=== PATIENT | female | born 1985 | race Two or more races ===

== ENCOUNTER 2024-04-03 14:02 | Outpatient (AMB) | payer OTHER, SELFPAY ==
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
[2024-04-03 14:16] VITALS: BP 102/68; PULSE 90; RESP 12; TEMP 36.8; O2SAT 100; BMI 24.3
== END 2024-04-03 15:38 | disposition home or self-care (01) ==
PROVIDERS: PCP Physician Assistant Medical; Visit Provider Physician Assistant Medical
DX: M54.2 Cervicalgia (principal); F07.81 Postconcussional syndrome; V89.2XXA Person injured in unspecified motor-vehicle accident, traffic, initial encounter; Z04.2 Encounter for examination and observation following work accident
CPT/HCPCS: 99204; G2211

== ENCOUNTER 2024-04-24 14:30 | Outpatient (AMB) | payer OTHER, SELFPAY ==
--- NOTE | 2024-04-15 08:35 | A.OFFPC_ITS ---
Intake Visit Reasons: CPE plus labs Allergies No Known Allergies Allergy (Verified 04/03/24 14:12) Tobacco use date assessed: 04/03/24 Dental Screening Dental Screen Date: 04/03/24 [facility] Family History (Updated 04/03/24 @ 14:41 by SUKUMAR Hernandez) Mother Hypertension Paternal Grandfather FH: CABG (coronary artery bypass surgery) Social History Housing: House Patient Tobacco Use Status: Never used Tobacco e-Cigarette/Vaping Use: Never Used Second Hand Smoke Exposure: No service: No Current occupational status: employed Current occupation: RN Current occupational exposures/hazards: No Cognitive needs: No Hearing needs: No Vision needs: Yes (contacts) Questionnaire Thrive Questionnaire Date Thrive assessed: 04/03/24 MAURI-7 AMB Questionnaire MAURI-7 Date MAURI - 7 assessed: 04/03/24 Source: Developed by Drs. Jacobo Otoole, Lorena Yanes, Esvin Steinberg and colleagues, with an educational sharon from [employer]. Physical exam (Primary Care) Tobacco/Smoking Status: Tobacco use Status Tobacco use date assessed 04/03/24 04/03/24 14:21 Patient Tobacco Use Status Never used Tobacco 04/03/24 14:21 e-Cigarette/Vaping Use Never Used 04/03/24 14:21 Thrive Assessment: Date of Thrive Assessment Date Thrive assessed 04/03/24 04/03/24 15:42 Coding
[2024-04-24 14:35] VITALS: BP 100/60; PULSE 84; O2SAT 99; BMI 24.5
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
== END 2024-04-24 15:34 | disposition home or self-care (01) ==
PROVIDERS: PCP Physician Assistant Medical; Visit Provider Physician Assistant Medical
DX: Z00.00 Encounter for general adult medical examination without abnormal findings (principal); R53.83 Other fatigue
CPT/HCPCS: 99395

== ENCOUNTER 2024-04-25 12:50 | Outpatient (REF) | payer OTHER, SELFPAY ==
[2024-04-25 14:30] LABS: Hematocrit 38.4 % (37.0-47.0); Mean Corpuscular HGB Conc 33.9 g/dl (31.0-35.0); Mean Corpuscular Volume 97.5 fL (80.0-98.0); Mean Platelet Volume 9.6 fL (9.4-12.3); Platelet Count 226 X10*3/uL (160-400); Red Blood Count 3.94 X10*6/uL (4.20-5.50); Red Cell Distribution Width 12.5 % (11.0-16.0)
[2024-04-25 15:07] LABS: Alanine Aminotransferase 15 U/L (0-31); Albumin Level 4.4 g/dL (3.5-5.0); Alkaline Phosphatase 42 U/L (39-117); Anion Gap 10 (12-20); Aspartate Amino Transferase 31 U/L (5-31); Bilirubin Total 1.3 mg/dL (0.0-1.0); Blood Urea Nitrogen 11 mg/dL (9-16); Calcium 9.5 mg/dL (8.4-10.2); Carbon Dioxide 28 mmol/L (22-29); Chloride 105 mmol/L (96-108); Cholesterol 178 mg/dL (<200); Estimated Glomerular Filt Rate > 60; Glucose Random 77 mg/dL (60-115); HDL Cholesterol 61 mg/dL (>40); LDL Cholesterol Calculated 108 mg/dL (<100); Potassium 3.6 mmol/L (3.3-5.1); Sodium 139 mmol/L (135-145); Total Protein 7.5 g/dL (6.5-8.0); Triglycerides 45 mg/dL (<150)
[2024-04-25 15:08] LABS: TSH reflex Free T4 0.43 uIU/mL (0.32-4.0)
== END 2024-04-25 12:51 | disposition home or self-care (01) ==
LOC: HO.WFDLDS 12:50
PROVIDERS: Visit Provider Physician Assistant Medical
DX: Z00.00 Encounter for general adult medical examination without abnormal findings (principal); Z13.6 Encounter for screening for cardiovascular disorders; E66.9 Obesity, unspecified; R53.83 Other fatigue; R42 Dizziness and giddiness
CPT/HCPCS: 36415; 80053; 80061; 84443; 85027

== ENCOUNTER 2024-07-08 13:41 | Outpatient (REF) | payer OTHER, SELFPAY ==
[2024-07-09 08:36] LABS: HBS Num1 > 1000.00 mIU/mL (0-7.99); ~Hepatitis B Surface Antibody REACTIVE (Nonreactive)
[2024-07-09 20:03] LABS: Varicella IgG Antibody 1.63 S/CO
[2024-07-11 16:12] LABS: TS Negative Control Passed; TS Panel A 0; TS Panel B 0; TS Positive Control Passed; TSpotTB Negative (Negative)
== END 2024-07-08 13:42 | disposition home or self-care (01) ==
LOC: HO.LAB 13:41
PROVIDERS: Visit Provider Physician Assistant Medical
DX: Z01.84 Encounter for antibody response examination (principal); Z11.1 Encounter for screening for respiratory tuberculosis
CPT/HCPCS: 36415; 86481; 86706; 86735; 86762; 86765; 86787

== ENCOUNTER 2024-09-09 10:49 | Outpatient (AMB) | payer OTHER, SELFPAY ==
--- NOTE | 2024-09-09 11:50 | MHC.OFFWIV ---
Intake Vital Signs 09/09/24 11:52 Weight 150 lb BP 118/76 Blood Pressure Location Rt brachial Position Sitting Pulse 82 Pulse Source Pulse Oximeter Temp 98.1 F Temp Source Oral Pulse Oximetry (%) 97 Oxygen Delivery Method Room Air Intake Visit Reasons: EP-continue cough, sob, chest pain due to cough Intake Note: Patient here for cough, SOB, chest pressure that has been present for about 2 weeks. Patient Tobacco Use Status: Never used Tobacco Allergies No Known Allergies Allergy (Verified 09/09/24 11:51) Do you need a note to return to daycare/school/sports/work: Yes HPI HPI Comments History of Present Illness Details The patient is a 39-year-old female presenting with a persistent cough. The patient reports being ill last week with symptoms of body aches, stomach discomfort, chills, and fever, lasting three to four days. She self-tested for COVID-19, given the presence of aches and systemic symptoms, but her test was negative. During the course of the illness, she experienced severe malaise and remained at home until feeling better. Post-recovery, however, she developed a persistent cough that has been ongoing. The cough is severe enough to cause muscle pain and back discomfort due to the frequency and intensity. 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 Consequently, she worries about the potential risk of transmitting an infectious condition. No abnormalities in respiratory history such as asthma or smoking have been documented. She denies fever resurgence but notes a lingering cough and described a nighttime chest tightness or pressure upon sleeping. [facility] Medical History (Updated 09/09/24 @ 12:21 by Bernie Buckley PA-C) No pertinent past medical history Surgical History (Updated 04/24/24 @ 15:11 by SUKUMAR Hernandez) History of wisdom tooth extraction No pertinent past surgical history Family History (Updated 04/24/24 @ 15:10 by SUKUMAR Hernandez) Mother Hypertension Paternal Grandfather FH: CABG (coronary artery bypass surgery) Prostate cancer Sister Rheumatoid arthritis Social History (Updated 04/24/24 @ 14:48 by Gloria Andrade CMA) Household Members: Family Both parents involved: No Caregiver staying overnight: No Housing: House Are you a primary plant health care technician to a significant other at home: No Do you presently have visiting nurse or other home services: No 75 years or older and lives alone: No Alcohol intake: current Alcohol type: wine and other Patient Tobacco Use Status: Never used Tobacco e-Cigarette/Vaping Use: Never Used Second Hand Smoke Exposure: No Agree to transfusion: Yes service: No Current occupational status: employed Current occupation: RN Current occupational exposures/hazards: No Cognitive needs: No Hearing needs: No Vision needs: Yes (contacts) Review of Systems Const All systems reviewed & are unremarkable except as noted in HPI and below Physical Exam Vital Signs: Last Vital Signs Temp 98.1 F 09/09/24 11:52 Pulse 82 09/09/24 11:52 BP 118/76 09/09/24 11:52 Pulse Ox 97 09/09/24 11:52 Oxygen Delivery Method Room Air 09/09/24 11:52 Const General: cooperative, healthy appearing, comfortable and no acute distress Orientation/consciousness: patient oriented x3 Limitations: no limitations HEENT Head: Yes normal to inspection Ears: hearing grossly normal bilaterally, external ears normal and TM's normal bilaterally General nose exam: Normal external nose present, Normal nares present and No nasal discharge present Face and sinus: Yes normal facial exam and Yes sinuses nontender Mouth: Normal oral and palatal mucosa present and moist mucous membranes Throat: Yes tonsils normal, Yes uvula midline and Yes posterior oropharynx abnormal (Erythema) Eyes General: appearance normal, both eyes and all related structures Neck Neck: Yes normal visual inspection Resp Effort & Inspection: normal respiratory effort, able to speak in complete sentences, Actively coughing, no respiratory distress, not tachypneic, no tripod positioning and no use of accessory muscles Auscultation: clear to auscultation bilaterally Cardio Rate: regular rate Rhythm: regular rhythm Heart sounds: normal S1 and S2 Skin General skin exam: no rashes or lesions noted Neuro General: patient oriented x3 Extrem General: Yes normal to inspection and Yes no clubbing, cyanosis or edema Assessment & Plan Assessment & Plan (1) Lower respiratory infection (e.g., bronchitis, pneumonia, pneumonitis, pulmonitis): Code(s): J22 - Unspecified acute lower respiratory infection Plan: Plan - Persistent Cough/Suspected Mycoplasma Pneumonia: - Prescribe Zpak, also Tessalon Perles to manage cough symptoms, advising use primarily at night. - Provision of an albuterol inhaler to manage possible bronchospasm and alleviate persistent coughing efforts. Instructions provided for proper inhaler use. - Testing for influenza, COVID-19, and RSV to rule out other potential viral infections. 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 Advised she stay out of work for the next 3 days Patient was informed and verbally consented to the use of an ambient scribe for clinic note documentation during this visit. Orders: Orders SARS-CoV2/FLU/RSV Today J22 - Unspecified acute lower respiratory infection Medications: New albuterol sulfate 90 mcg/actuation 2 puffs inhalation Q6H PRN 8.5 grams 0RF shortness of breath or wheezing or cough benzonatate 200 mg PO TID PRN 14 caps 0RF cough azithromycin For 250 mg dose pack: take 500 mg today (day 1), then 250 mg for 4 days (days 2-5) PO 6 tabs 0RF Coding Level of Care Code Est Pt Level 4 (26618) Diagnoses Lower respiratory infection (e.g., bronchitis, pneumonia, pneumonitis, pulmonitis) J22
[2024-09-09 11:52] VITALS: BP 118/76; PULSE 82; TEMP 36.7; O2SAT 97
== END 2024-09-09 13:51 | disposition home or self-care (01) ==
PROVIDERS: PCP Physician Assistant Medical; Visit Provider Physician Assistant
DX: J22 Unspecified acute lower respiratory infection (principal)

== ENCOUNTER 2024-09-09 10:49 | Outpatient (REF) | payer OTHER, SELFPAY ==
[2024-09-09 14:35] LABS: Influenza A PCR NEGATIVE (Negative); Influenza B PCR NEGATIVE (Negative); Resp Syncy Virus RNA Qual PCR NEGATIVE (Negative); SARS COV2 PCR INHOUSE NEGATIVE (Negative)
== END 2024-09-09 10:50 | disposition home or self-care (01) ==
LOC: HO.LNP 10:49
PROVIDERS: PCP Physician Assistant Medical; Visit Provider Physician Assistant
DX: J22 Unspecified acute lower respiratory infection (principal)
CPT/HCPCS: 0241U

== ENCOUNTER 2025-09-03 10:23 | Outpatient (AMB) | payer OTHER, SELFPAY ==
--- NOTE | 2025-09-03 10:37 | A.OFFPC_ITS ---
Vital Signs 09/03/25 10:42 Height 5 ft 6 in Weight 150 lb 8 oz BMI 24.3 BP 100/70 Blood Pressure Location Lt brachial Position Sitting Respiration 15 Pulse 77 Pulse Source Pulse Oximeter Temp 97.3 F Temp Source Temporal Artery Scan Pulse Oximetry (%) 95 Oxygen Delivery Method Room Air Intake Visit Reasons: Annual PE Intake Note: Damaso presents in the office today for her annual physical. Allergies No Known Allergies Allergy (Verified 09/03/25 10:39) Medication List - Last Reconciled 09/03/25 by SUKUMAR Hernandez multivitamin 1 tab PO DAILY nitrofurantoin macrocrystal 100 mg PO Q12H 7 days oxcarbazepine (Trileptal) 150 mg PO DAILY Tobacco use date assessed: 09/03/25 Dental Screening Dental Screen Date: 09/03/25 Did you have a dental visit in the last 12 months?: Yes Did you have a dental problem in the last 6 months where you did not have access to dental care?: No Was dental information given to patient?: Patient has dentist HPI HPI Comments History of Present Illness Details 40-year-old female presents for a physic al exam. She was seen by [facility] and diagnosed with vestibular paroxysmia. She was put on Trileptal, and she is doing much better! She is very relieved. She has a follow up with Neurology 09/16/2025. She endorses UTI symptoms for 2 days. She endorses frequent urination. No burning or bladder fevers or chills. ROS: Constitutional: No unexplained weight loss, fever, chills, fatigue or night sweats. Eyes: No vision changes, blurry vision, double vision, eye pain, eye redness, eye discharge. ENT: No hearing loss, sneezing, congestion, runny nose or sore throat. Respiratory: No shortness of breath, cough or sputum production. Cardiovascular: No chest pain, chest pressure or chest discomfort. No palpitations or pedal edema. Gastrointestinal: No anorexia, nausea, vomiting or diarrhea. No abdominal pain or blood in stool. Genitourinary: See HPI. Denies flank pain Neurologic: No headache, syncope, unilateral weakness, ataxia, numbness or tingling in the extremities. Musculoskeletal: No muscle pain, back pain, joint pain or swelling. Hematologic/Lymphatics: No bleeding or bruising. No painful lymph nodes. Skin: No rash Endocrine: No cold or heat intolerance. No polyuria or polydipsia. Psychiatric: No depression or anxiety. No SI/HI. Physical exam: Constitutional: Alert, in no distress. Head: Normocephalic. Eyes: Pupils are equal, round and reactive to light. Extraocular muscles intact. Ear, Nose and Throat: Canals clear. TMs normal. Normal nasal mucosa. No nasal discharge. No oral lesions. Neck: Supple, Full range of motion. No lymphadenopathy. No palpable thyroid masses. Respiratory: Clear to auscultation. Cardiovascular: S1 S2 regular. No murmurs. Gastrointestinal: Abdomen soft, non-tender, non-distended. Normal bowel sounds. No palpable masses. Genitourinary: No costovertebral angle tenderness. Neurologic: No focal neurological deficits. Symmetric patellar reflexes. Moves all extremities spontaneously. Skin: No rashes Musculoskeletal: No gross deformities. Normal range of motion. Extremities: Warm and well perfused. No clubbing, cyanosis or edema. Intact peripheral pulses bilaterally Psychiatric: Normal mood and affect [facility] Medical History (Updated 09/03/25 @ 13:59 by SUKUMAR Hernandez) Vestibular paroxysmia Routine physical examination UTI (urinary tract infection) Screening for cardiovascular condition No pertinent past medical history Surgical History (Updated 04/24/24 @ 15:11 by SUKUMAR Hernandez) History of wisdom tooth extraction No pertinent past surgical history Family History (Updated 09/03/25 @ 10:42 by Joya Hernadez CMA) Mother Hypertension FH: mental illness Depression Paternal Grandfather FH: CABG (coronary artery bypass surgery) Prostate cancer Sister Rheumatoid arthritis Social History (Updated 09/03/25 @ 10:42 by Joya Hernadez CMA) Household Members: Family Both parents involved: No Caregiver staying overnight: No Housing: House Are you a primary daycare assistant to a significant other at home: No Do you presently have visiting nurse or other home services: No 75 years or older and lives alone: No Alcohol intake: current Alcohol type: wine and other Patient Tobacco Use Status: Never used Tobacco e-Cigarette/Vaping Use: Never Used Second Hand Smoke Exposure: No Use of substances other than those prescribed or required for medical reasons: No Agree to transfusion: Yes service: No Current occupational status: employed Current occupation: RN Current occupational exposures/hazards: No Cognitive needs: No Hearing needs: No Vision needs: Yes (contacts) Questionnaire PHQ-9 Over the last 2 weeks, how often have you been bothered by any of the following problems? 1. Little interest or pleasure in doing things: not at all 2. Feeling down, depressed, or hopeless: not at all 3. Trouble falling or staying asleep, or sleeping too much: not at all 4. Feeling tired or having little energy: not at all 5. Poor appetite or overeating: not at all 6. Feeling bad about yourself - or that you are a failure or have let yourself or your family down: not at all 7. Trouble concentrating on things, such as reading the newspaper or watching television: not at all 8. Moving or speaking so slowly that other people could have noticed. Or the opposite - being so fidgety or restless that you have been moving around a lot more than usual: not at all 9. Thoughts that you would be better off or of hurting yourself in some way: not at all Total score: 0 Depression Screening Interpretation: Negative Depression Screening Done: Yes 83030 - PHQ-9 Billing: Yes Source: Developed by Drs. Jacobo Otoole, Lorena Yanes, Esvin Steinberg and colleagues, with an educational sharon from [employer]. Thrive Questionnaire Date Thrive assessed: 09/03/25 I am a: Patient What is your living situation today?: I have a steady place to live Within the past 12 months, did the food you bought not last and you didn't have the money to get more?: Never true Within the past 12 months, did you worry whether your food would run out before you got money to buy more?: Never true Do you have trouble paying for medicines?: No Do you have trouble getting transportation to medical appointments?: No Do you have trouble paying your heating and electricity bill?: No Do you have trouble taking care of your child, family member or friend?: No Do you have trouble with day-to-day activities such as bathing, preparing meals, shopping, managing finances, etc.?: No Are you currently unemployed and looking for a job?: No Are you interested in more education?: No Please select the resources that you would like help with: None Currently or been in a relationship where the following occur: No concerns reported THRIVE Score: 0 AUDIT C Alcohol Use Questionnaire (AUDIT-C) 1. How often do you have a drink containing alcohol?: Never 3. How often do you have six or more drinks on one occasion?: Never Total Score: 0 MAURI-7 AMB Questionnaire MAURI-7 Date MAURI - 7 assessed: 09/03/25 Feeling nervous, anxious, or on edge: 0 = Not at all Not being able to stop or control worryin = Not at all Worrying too much about different things: 0 = Not at all Trouble relaxin = Not at all Being so restless that it is hard to sit still: 0 = Not at all Becoming easily annoyed or irritable: 0 = Not at all Feeling afraid as if something awful might happen: 0 = Not at all Total MAURI-7 score (0-4 normal; 5-9 mild; 10-14 moderate; 15-21 severe): 0 Source: Developed by Drs. Jacobo Otoole, Lorena Yanes, Esvin Steinberg and colleagues, with an educational sharon from [employer]. MAURI-7 Assessment Billing MAURI-7 Assessment Tool: MAURI-7 Assessment 31199 Physical exam (Primary Care) Vital Signs: Last Vital Signs Temp 97.3 F 09/03/25 10:42 Pulse 77 09/03/25 10:42 Resp 15 09/03/25 10:42 BP 100/70 09/03/25 10:42 Pulse Ox 95 09/03/25 10:42 Oxygen Delivery Method Room Air 09/03/25 10:42 BMI result Body Mass Index 24.3 Tobacco/Smoking Status: Tobacco use Status Tobacco use date assessed 09/03/25 09/03/25 10:45 Patient Tobacco Use Status Never used Tobacco 09/03/25 10:45 e-Cigarette/Vaping Use Never Used 09/03/25 10:45 PHQ-9: PHQ-9 Score PHQ-9: Total score 0 09/03/25 11:49 Depression Screening Interpretation: Negative Thrive Assessment: Date of Thrive Assessment Date Thrive assessed 09/03/25 09/03/25 10:45 Currently or been in a relationship where the following occur: No concerns reported Office Procedures Flu Questionnaire Does the patient have a severe egg allergy?: No Does the patient have severe life threatening allergies?: No Does the patient have a fever or illness today?: No Has the patient ever had Guillain-Windham Syndrome?: No Has the patient ever had any past reaction to a flu shot?: No Results AMB Urinalysis Dipstick UR Leukocytes Medium Last Edit by Joya Hernadez CMA on 09/03/25 11:38 UR Nitrite Negative Last Edit by Joya Hernadez CMA on 09/03/25 11:38 UR Urobilinogen Normal Last Edit by Joya Hernadez CMA on 09/03/25 11:38 UR Protein Negative Last Edit by Joya Hernadez CMA on 09/03/25 11:38 UR Ph 6.0 Last Edit by Joya Hernadez CMA on 09/03/25 11:38 UR Blood Trace Last Edit by Joya Hernadez CMA on 09/03/25 11:38 UR Specific Maxwell 1.010 Last Edit by Joya Hernadez CMA on 09/03/25 11:3 8 UR Ketone Negative Last Edit by Joya Hernadez CMA on 09/03/25 11:38 UR Bilirubin Negative Last Edit by Joya Hernadez CMA on 09/03/25 11:38 UR Glucose Negative Last Edit by Joya Hernadez CMA on 09/03/25 11:38 Immunizations Fluarix [id number] (PF) 45 mcg (15 mcg x 3)/0.5 mL IM syringe Performing Provider: SUKUMAR Hernandez Performing Location: [facility] Administered by: Joya Hernadez CMA on 09/03/25 12:08 Dose Route Admin Location Dispensed Lot Number Expiration Date [facility] Merchandise Stocker 0.5 mL IM Left Deltoid 0.5 mL [id number] 04/13/26 [id number] [employer]INE VIS Given Date VIS Provided VIS Publication Date 09/03/25 Single Vaccine 24 Eligibility Eligibility Date Funding Source Not [facility] Eligible 09/03/25 Private Results Reviewed Results Reviewed: Laboratory Last Values Urine pH (Clinic) 6.0 09/03/25 11:35 Specific Maxwell (Clinic) 1.010 09/03/25 11:35 Ur Protein (Clinic) Negative 09/03/25 11:35 Ur Ketones (Clinic) Negative 09/03/25 11:35 Urine Blood (Clinic) Trace 09/03/25 11:35 Urine Nitrite Negative 09/03/25 11:35 Urine Bilirubin (Clinic) Negative 09/03/25 11:35 Urobilinogen (Clinic) Normal 09/03/25 11:35 Leukocyte Esterase (Clinic) Medium 09/03/25 11:35 Urine Glucose (Clinic) Negative 09/03/25 11:35 Coding Level of Care Code Est Pt Prev Care 18-39y(66680) Diagnoses Routine physical examination Z00.00 Acute cystitis without hematuria N30.00 Urinary tract infection type: acute cystitis Hematuria presence: without hematuria Vestibular paroxysmia H81.8X9 Additional Codes MAURI-7 Assessment Billing - MAURI-7 Assessment Tool: MAURI-7 Assessment 61493 ([id number]) PHQ-9 - 51921 - PHQ-9 Billing: Yes ([id number]) Assessment & Plan Assessment & Plan (1) Routine physical examination: Code(s): Z00.00 - Encounter for general adult medical examination without abnormal findings Category: Medical Plan: Patient is seen today for a routine physical. As part of this visit we reviewed the following issues, which are considered and essential part of preventative health in this age group: - Breast Cancer screening - Annual Campus Chaplain exam - Blood pressure screening annually - Cholesterol screening - Nutritional and exercise counseling - Counseling of injury prevention including fire prevention, smoke alarms and seat belt usage - Screening for depression - Education about skin cancer - Recommendations about immunizations - Recommendation of an eye exam (2) UTI (urinary tract infection): Code(s): N39.0 - Urinary tract infection, site not specified Category: Medical Qualifiers: Urinary tract infection type: acute cystitis Hematuria presence: without hematuria Qualified Code(s): N30.00 - Acute cystitis without hematuria Plan: Urine culture ordered. Push fluids. Prescribed Macrobid. (3) Vestibular paroxysmia: Code(s): H81.8X9 - Other disorders of vestibular function, unspecified ear Category: Medical Plan: The patient is doing much better. She has a follow up with neurologist, and she is taking Trileptal. Plan Schedule physical exam in 1 year Orders: Orders Urine Culture Today R39.9 - Unspecified symptoms and signs involving the genitourinary system Comprehensive Met. Panel Today Z13.6 - Encounter for screening for cardiovascular disorders Vitamin D 25-OH (D2 and D3) Today Z13.6 - Encounter for screening for cardiovascular disorders AMB Urinalysis Dipstick Today Z13.9 - Encounter for screening, unspecified Lipid Panel Today Z13.6 - Encounter for screening for cardiovascular disorders Complete Blood Count no Diff Today Z13.6 - Encounter for screening for cardiovascular disorders Influenza [id number] Immunization Today Z23 - Encounter for immunization Medications: New nitrofurantoin macrocrystal must administer with a meal/food 100 mg PO Q12H 14 caps 0RF 7 days
[2025-09-03 10:42] VITALS: BP 100/70; PULSE 77; RESP 15; TEMP 36.3; O2SAT 95; BMI 24.3
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
--- OUTSIDE RECORDS SUMMARY | 2025-09-03 15:23 | XMS_ITS ---
Author Name [facility] Organization Unknown History of Medication Use Medication Directions Dispensed Refills Start Date End Date Stat albuterol sulfate HFA 90 mcg/actuation aerosol inhaler INHALE 2 PUFFS BY MOUTH EVERY 6 HOURS NEEDED FOR SHORTNESS OF BREATH OR WHEEZING OR COUGH active azithromycin 250 mg tablet active benzonatate 200 mg capsule TAKE 1 CAPSULE BY MOUTH THREE TIMES DAILY NEEDED FOR COUGH active cyclobenzaprine 10 mg tablet TAKE 1 TABLET BY MOUTH TWICE DAILY NEEDED FOR MUSCLE SPASM FOR 14 DAYS. DO NOT DRINK ALCOHOL OR DRIVE WHILE TAKING MED active cyclobenzaprine 5 mg tablet TAKE 1 TABLET BY MOUTH EVERY NIGHT AT BEDTIME active ibuprofen 600 mg tablet TAKE 1 TABLET BY MOUTH THREE TIMES DAILY FOR 7 DAYS active lidocaine 5 % topical patch APPLY 1 PATCH TO AFFECTED AREA EVERY 12 HOURS NEEDED active naproxen 500 mg tablet TAKE 1 TABLET BY MOUTH EVERY 12 HOURS NEEDED FOR BACK PAIN. TAKE WITH FOOD. active prednisone 10 mg tablet active Problems Problem Status Onset Date Problem Type Date of Resoluti on Source Tendinitis of left rotator cuff active 2024-12-17 ProblemAct ENS_AONECT Encounters Encounter Type Encounter Reason Primary Diagnosis Location Date Ambulatory [facility] 05/04/2025 Ambulatory [facility] 02/23/2025 Ambulatory [facility] 12/27/2024 Ambulatory [facility] 12/18/2024 Ambulatory [facility] 12/16/2024 Ambulatory [facility] 12/16/2024 Ambulatory [facility] 12/16/2024 Ambulatory [facility] 12/16/2024 [facility] 12/09/2024 Ambulatory [facility] 12/01/2024 Ambulatory [facility] 12/01/2024
== END 2025-09-03 12:08 | disposition home or self-care (01) ==
LOC: HO.HMCFM 10:23
PROVIDERS: PCP Physician Assistant Medical; Visit Provider Physician Assistant Medical
DX: Z00.00 Encounter for general adult medical examination without abnormal findings (principal); N30.00 Acute cystitis without hematuria; H81.8X9 Other disorders of vestibular function, unspecified ear; Z13.9 Encounter for screening, unspecified; Z23 Encounter for immunization

== ENCOUNTER 2025-09-03 10:23 | Outpatient (REF) | payer OTHER, SELFPAY ==
--- OUTSIDE RECORDS SUMMARY | 2025-09-03 19:56 | XMS_ITS | Data Portability ---
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 Her MRI demonstrates some tendinitis. I recommended that she continue with home exercise program. As well as me to focus with respect to postural training and balancing. I did provide her with some home exercises. Patient is already going to physical therapy so she will continue with this. She may utilize wipv-zew-crwpho r anti-inflammato ry antipyretic medication for pain. Patient was in agreement with this plan and all questions were answered to her satisfaction. [email or web address] Not available 12/17/2024 09:19:10 Plan of Treatment Reminders Order Date Submit Date Provider Last Modified By Organization Details Last Modified Time Details Appointments None record ed. Lab None record ed. Referral None record ed. Procedures None record ed. Surgeries None record ed. Imaging None record ed. Medication Orders None record ed. Patient TargetsNo targets recorded. Patient InstructionsNo instructions recorded. Reason for Referral None Reported. Results Created Date Observation Date Name Description Value Unit Range Abnormal Flag Note LastModifiedBy Organization Detail LastModifiedTime 12/17/1903/24/2024 XR, zaynab jose, 2 or more view No observ ation record ed. [address], [place], [address], 12/16/2024 15:11:42 12/17/1910/29/2024 MRI, shoul jose, w/o contr ast No observ ation record ed. [facility] [address], [place], [address], 12/16/2024 15:12:26 Result Notes None recorded. Problems Name Problem SNOMED Code Status Onset Date Resolution Date Notes Provider Name and Address Organization Details Recorded Time Tendinitis of left rotator cuff 3394285452204 9101 Active 2024 Momo Hidalgo MD [address], [place], [address] , [place] [facility] 09:19:39 Problem Notes None recorded. Medical Equipment None Reported. Allergies No known drug allergies Medications Name Sig Start Date Stop Date Status Note LastModified by Organization Details LastModified Time cyclobenzapri ne 10 mg tablet TAKE 1 TABLET BY MOUTH TWICE DAILY NEEDED FOR MUSCLE SPASM FOR 14 DAYS. DO NOT DRINK ALCOHOL OR DRIVE WHILE TAKING MED active Not Available Not Available N ot Available prednisone 10 mg tablet active Not Available Not Available No t Available azithromycin 250 mg tablet active Not Available Not Availabl e Not Available benzonatate 200 mg capsule TAKE 1 CAPSULE BY MOUTH THREE TIMES DAILY NEEDED FOR COUGH active Not Available Not Available No t Available lidocaine 5 % topical patch APPLY 1 PATCH TO AFFECTED AREA EVERY 12 HOURS NEEDED active Not Available Not Available No t Available ibuprofen 600 mg tablet TAKE 1 TABLET BY MOUTH THREE TIMES DAILY FOR 7 DAYS active Not Available Not Available No t Available albuterol sulfate HFA 90 mcg/actuation aerosol inhaler INHALE 2 PUFFS BY MOUTH EVERY 6 HOURS NEEDED FOR SHORTNESS OF BREATH OR WHEEZING OR COUGH active Not Available Not Available No t Available naproxen 500 mg tablet TAKE 1 TABLET BY MOUTH EVERY 12 HOURS NEEDED FOR BACK PAIN. TAKE WITH FOOD. active Not Available Not Available No t Available cyclobenzapri ne 5 mg tablet TAKE 1 TABLET BY MOUTH EVERY NIGHT AT BEDTIME active Not Available Not Available No t Available Vitals Date Recorded Body height Body mass index (BMI) Body weight Provider Name and Address Organization Details Last Updated DateTime 12/16/2024 167.64 cm 23.7 kg/m2 [address]90[address] [place] [facility] 12/16/2024 16:16:16 Social History None recorded. Functional Status Question Answer Note LastModified by Organizat ion Details LastModified Time Do you use any illicit or recreational drugs? No Information not available 12/16/2024 Do you or have you ever used any other forms of tobacco or nicotine? No Information not available 12/16/2024 What is your level of alcohol consumption? None Information not available 12/16/2024 Mental Status None recorded. Family History Relationship Description Onset Age of this Age Resolved Age Notes LastModified by Organization Details LastModified Time Mother Hypertensive disorder Not available 2024 16:18:44 Mother Arthritis Not availabl e 12/16/2024 16:19:00 Sister Arthritis Not availabl e 12/16/2024 16:19:00 Medical History No medical history recorded. Gynecological HistoryNo gynecological history recorded. Obstetrics History GPAL:G 0 P 0 0 0 0 Past Encounters Encounter ID Performer Location Encounter Start Date Encounter Closed Date Diagnosis/Indication Diagnosis SNOMED-CT Code Diagnosis ICD10 Code Diagnosis IMO Codes Diagnosis Note [id number] Momo Hidalgo MD [facility]WNY[facility] [address] [address] 12/16/2024 15:52:47 12/16/2024 16:46:49 Tendinitis of left rotator cuff [id number] M75.82 [id number] Health Concerns Section Related Observation LastModified by Organization Detai ls LastModified Time None Recorded Concern Status LastModified by Organization Details LastModified Time None Recorded Advance Directives Directive None Recorded Payers Insurance Date Sequence Insurance Name Policy Number Policy Gaines Covered Member ID Gaines Member ID Guarantor Name 12/01/2024 1 [id number] [id number] Damaso Kinney [id number] Damaso Kinney Notes Date Note Type Note Provider Name and Address Organization Details Recorded Time 12/16/2024 text/html ROS as noted in the HPI Patient 39-year-old RHD woman with left shoulder pain for several months. She has been doing physical therapy and actually feeling much better today. In terms of treatment she is also had an injection. She presents for review of MRI imaging. As she works as a nurse at [employer]. She rates her pain at best 0 out of 10 at worst 1 out of 10. Momo Hidalgo MD [address] [place] [address], [place], [address], [place] [facility] 12/17/2024 09:19:49 OBGyn Episode No OBEpisode recorded.
== END 2025-09-03 10:24 | disposition home or self-care (01) ==
LOC: HO.LNP 10:23
PROVIDERS: PCP Physician Assistant Medical; Visit Provider Physician Assistant Medical
DX: Z00.00 Encounter for general adult medical examination without abnormal findings (principal); Z23 Encounter for immunization; R39.9 Unspecified symptoms and signs involving the genitourinary system; Z79.899 Other long term (current) drug therapy; N30.00 Acute cystitis without hematuria; H81.8X9 Other disorders of vestibular function, unspecified ear
CPT/HCPCS: 81002; 87086; 90471; 90656; 96127